=== PATIENT | female | born 1970 | race Two or more races ===

== ENCOUNTER 2021-02-25 18:54 | Emergency (ER) | payer SELFPAY ==
[~2021-02-25] VITALS: Ht 162.6 cm; Wt 81.2 kg
[2021-02-25 18:55] VITALS: BP 149/91
== END 2021-02-25 20:07 | disposition left against medical advice (07) ==
LOC: ER 18:57
DX: R51.9 Headache, unspecified (principal); H57.89 Other specified disorders of eye and adnexa; Z53.21 Procedure and treatment not carried out due to patient leaving prior to being seen by health care provider